=== PATIENT | female | born 2000 | race Native Hawaiian/Other Pacific Islander ===

== ENCOUNTER 2020-03-25 12:03 | Emergency (ER) | payer MEDICAID ==
[2020-03-25 12:52] VITALS: BP 114/79
--- NOTE | 2020-03-25 13:18 | Event Note ---
ED Screening Note Date of service: 03/25/20 Time: 13:16 ED Screening Note: Patient presents with complaints of left-sided chest pain and pain with inspiration x last night She denies any recent long travel or leg pain/swelling Patient states she did have a sore throat 2 weeks ago that lasted for 1 to 2 weeks, denies being treated with antibiotics This initial assessment/diagnostic orders/clinical plan/treatment(s) is/are subject to change based on patients health status, clinical progression and re- assessment by fellow clinical providers in the ED. Further treatment and workup at subsequent clinical providers discretion. Patient/guardian urged not to elope from the ED as their condition may be serious if not clinically assessed and managed. Initial orders include: Chest x-ray Labs EKG
[2020-03-25 14:37] LABS: Basophils % (Auto) 0.5 % (0.0-1.8); Eosinophils % (Auto) 0.7 % (0.0-4.3); Hematocrit 38.6 % (30.3-42.9); Hemoglobin 12.7 gm/dl (10.1-14.3); Lymphocytes # (Auto) 1.1 K/mm3 (1.2-5.4); Lymphocytes % (Auto) 21.3 % (13.4-35.0); Mean Corpuscular HGB Conc 33 % (30-34); Mean Corpuscular Volume 87 fl (79-97); Monocytes # (Auto) 0.5 K/mm3 (0.0-0.8); Monocytes % (Auto) 8.7 % (0.0-7.3); Platelet Count 130 K/mm3 (140-440); Red Blood Count 4.46 M/mm3 (3.65-5.03); Red Cell Distribution Width 14.5 % (13.2-15.2)
[2020-03-25 15:01] LABS: Alanine Aminotransferase 11 units/L (7-56); Albumin 3.8 g/dL (3.9-5); BUN/Creatinine Ratio 11; Blood Urea Nitrogen 8 mg/dL (7-17); Calcium 8.9 mg/dL (8.4-10.2); Hemolysis Index 12
[2020-03-25 15:49] LABS: HCG Qualitative,Urine Negative (Negative)
--- NOTE | 2020-03-25 16:13 | XRay Report ---
CHEST 2 VIEWS INDICATION / CLINICAL INFORMATION: Chest pain. COMPARISON: None available. FINDINGS: SUPPORT DEVICES: None. HEART / MEDIASTINUM: The heart size and pulmonary vasculature are normal. The aorta is normal in [place]. LUNGS / PLEURA: There is minimal patchy parenchymal disease in the left lower lung laterally. There i s a trace amount of left pleural fluid. No pneumothorax. ADDITIONAL FINDINGS: No significant additional findings. IMPRESSION: Minimal left basilar pleuroparenchymal opacity laterally. The findings may be related to early pneumonia or a combination of subsegmental atelectasis and trace pleural effusion. Signer Name: John Plaza MD Signed: 03/25/2020 4:09 PM Workstation Name: [id number]
--- NOTE | 2020-03-25 19:04 | Emergency Department Report ---
ED General Adult HPI - General Chief complaint: Chest Pain Stated complaint: CHEST & BACK PAIN Time Seen by Provider: 03/25/20 13:13 Source: patient Mode of arrival: Ambulatory Limitations: No Limitations - History of Present Illness Initial comments: 19-year-old female without significant past medical presents with complaints of left-sided chest pain and pain with inspiration x last night. She denies any recent long travel, hormone use, leg pain/swelling, hemoptysis, or history of cancer. Patient states she did have a sore throat 2 weeks ago that lasted for 1 to 2 weeks, denies being treated with antibiotics. Patient does admit to history of smoking cigarettes and denies any known sick contacts. She rates her current chest pain as a 5/10 in severity. Patient also admits to a mild to moderate cough that is nonproductive. She denies any abdominal pain, nausea/vomiting/diarrhea, loss of smell taste/smell, or fever. -: Sudden Radiation: non-radiation Severity scale (0 -10): 5 Quality: sharp Consistency: constant Improves with: rest Worsens with: other (Inspiratory) Treatments Prior to Arrival: none - Related Data Home Medications Medication Instructions Recorded Confirmed Last Taken prednisoLONE [Millipred] 5 mg PO QDAY 07/09/19 07/09/19 07/09/19 09:00 Previous Rx's Medication Instructions Recorded Last Taken Type Docusate Sodium [Colace] 100 mg PO BID PRN #60 capsule 07/12/19 Unknown Rx Ferrous Sulfate [Feosol 325 MG tab] 325 mg PO BID #60 tablet 07/12/19 Unknown Rx HYDROcodone/APAP 5-325 [[place] 1 each PO Q6HR PRN #20 tablet 07/12/19 Unknown Rx 5/325] Ibuprofen [Motrin] 600 mg PO Q6H PRN #30 tablet 07/12/19 Unknown Rx Doxycycline Monohydrate 100 mg PO BID 10 Days #20 capsule 03/25/20 Unknown Rx Ibuprofen [Motrin 800 MG tab] 800 mg PO Q8HR PRN #21 tablet 03/25/20 Unknown Rx Allergies Allergy/AdvReac Type Severity Reaction Status Date / Time No Known Allergies Allergy Verified 07/09/19 21:28 ED Review of Systems ROS: Stated complaint: CHEST & BACK PAIN Other details as noted in HPI Constitutional: denies: chills, diaphoresis, fever, malaise, weakness ENT: denies: throat pain Respiratory: cough. denies: shortness of breath Cardiovascular: chest pain. denies: palpitations, edema, syncope Gastrointestinal: denies: abdominal pain, nausea, vomiting, diarrhea Genitourinary: denies: urgency Musculoskeletal: denies: back pain Skin: denies: rash, lesions Neurological: denies: headache, weakness Psychiatric: denies: anxiety ED Past Medical Hx - Past Medical History Previous Medical History?: Yes Hx Hypertension: No Hx Congestive Heart Failure: No Hx Diabetes: No Hx Deep Vein Thrombosis: No Hx Renal Disease: No Hx Sickle Cell Disease: No Hx Seizures: No Hx Asthma: Yes Hx COPD: No Hx HIV: No - Surgical History Past Surgical History?: No - Social History Smoking Status: Current Every Day Smoker Substance Use Type: Alcohol - Medications Home Medications: Home Medications Medication Instructions Recorded Confirmed Last Taken Type prednisoLONE [Millipred] 5 mg PO QDAY 07/09/19 07/09/19 07/09/19 09:00 History Docusate Sodium [Colace] 100 mg PO BID PRN #60 capsule 07/12/19 Unknown Rx Ferrous Sulfate [Feosol 325 MG tab] 325 mg PO BID #60 tablet 07/12/19 Unknown Rx HYDROcodone/APAP 5-325 [[place] 1 each PO Q6HR PRN #20 tablet 07/12/19 Unknown Rx 5/325] Ibuprofen [Motrin] 600 mg PO Q6H PRN #30 tablet 07/12/19 Unknown Rx Doxycycline Monohydrate 100 mg PO BID 10 Days #20 capsule 03/25/20 Unknown Rx Ibuprofen [Motrin 800 MG tab] 800 mg PO Q8HR PRN #21 tablet 03/25/20 Unknown Rx ED Physical Exam - General Limitations: No Limitations General appearance: alert, in no apparent distress - Head Head exam: Present: atraumatic, normocephalic - Eye Eye exam: Present: normal appearance - ENT ENT exam: Present: normal orophraynx, mucous membranes moist - Neck Neck exam: Present: normal inspection - Respiratory Respiratory exam: Present: normal lung sounds bilaterally. Absent: respiratory distress, chest wall tenderness - Cardiovascular Cardiovascular Exam: Present: regular rate, normal rhythm. Absent: systolic murmur, diastolic murmur, rubs, gallop - GI/Abdominal GI/Abdominal exam: Present: soft, normal bowel sounds. Absent: tenderness - Extremities Exam Extremities exam: Present: normal inspection. Absent: calf tenderness (No swelling noted bilaterally to lower extremity) - Back Exam Back exam: Present: normal inspection - Neurological Exam Neurological exam: Present: alert, oriented X3, normal gait - Psychiatric Psychiatric exam: Present: normal affect, normal mood - Skin Skin exam: Present: warm, dry, intact, normal color. Absent: rash, cyanosis, diaphoretic, petechiae, ecchymosis ED Course Vital Signs 03/25/20 12:50 Temperature 98.6 F Pulse Rate 87 Respiratory 18 Rate Blood Pressure 114/79 O2 Sat by Pulse 99 Oximetry ED Medical Decision Making - Lab Data Result diagrams: 03/25/20 14:19 03/25/20 14:19 Lab Results 03/25/20 03/25/20 03/25/20 Range/Units 14:19 14:19 Unknown WBC 5.3 (4.5-11.0) K/mm3 RBC 4.46 (3.65-5.03) M/mm3 Hgb 12.7 (10.1-14.3) gm/dl Hct 38.6 (30.3-42.9) % MCV 87 (79-97) fl MCH 29 (28-32) pg MCHC 33 (30-34) % RDW 14.5 (13.2-15.2) % Plt Count 130 L (140-440) K/mm3 Lymph % (Auto) 21.3 (13.4-35.0) % [place] % (Auto) 8.7 H (0.0-7.3) % Eos % (Auto) 0.7 (0.0-4.3) % Baso % (Auto) 0.5 (0.0-1.8) % Lymph # 1.1 L (1.2-5.4) K/mm3 [place] # 0.5 (0.0-0.8) K/mm3 Eos # 0.0 (0.0-0.4) K/mm3 Baso # 0.0 (0.0-0.1) K/mm3 Seg Neutrophils % 68.8 (40.0-70.0) % Seg Neutrophils # 3.7 (1.8-7.7) K/mm3 Sodium 139 (137-145) mmol/L Potassium 4.2 (3.6-5.0) mmol/L Chloride 104.1 (98-107) mmol/L Carbon Dioxide 23 (22-30) mmol/L Anion Gap 16 mmol/L BUN 8 (7-17) mg/dL Creatinine 0.7 (0.7-1.2) mg/dL Estimated GFR > 60 ml/min BUN/Creatinine Ratio 11 % Glucose 95 (65-100) mg/dL Calcium 8.9 (8.4-10.2) mg/dL Total Bilirubin 0.30 (0.1-1.2) mg/dL AST 20 (5-40) units/L ALT 11 (7-56) units/L Alkaline Phosphatase 60 (35-129) units/L Troponin T < 0.010 (0.00-0.029) ng/mL Total Protein 7.4 (6.3-8.2) g/dL Albumin 3.8 L (3.9-5) g/dL Albumin/Globulin Ratio 1.1 % Urine HCG, Qual Negative (Negative) - EKG Data EKG shows normal: sinus rhythm Rate: normal - EKG Data Interpretation: normal EKG - Radiology Data Radiology results: report reviewed CHEST 2 VIEWS INDICATION / CLINICAL INFORMATION: Chest pain. COMPARISON: None available. FINDINGS: SUPPORT DEVICES: None. HEART / MEDIASTINUM: The heart size and pulmonary vasculature are normal. The aorta is normal in caliber. LUNGS / PLEURA: There is minimal patchy parenchymal disease in the left lower lung laterally. There is a trace amount of left pleural fluid. No pneumothorax. ADDITIONAL FINDINGS: No significant additional findings. IMPRESSION: Minimal left basilar pleuroparenchymal opacity laterally. The findings may be related to early pneumonia or a combination of subsegmental atelectasis and trace pleural effusion. - Medical Decision Making Patient here with complaints of left-sided chest pain, cough, and pleurisy. PERC score = 0. No significant abnormalities noted on labs. White count is normal on CBC. Chest x-ray shows possible early onset pneumonia versus atelectasis and a minimal left pleural effusion. Vitals are normal. EKG is normal negative for any signs of pericarditis. Will treat for pneumonia with doxycycline. Patient advised to discontinue smoking. Patient is well-appearing and stable for discharge home. Recommend follow-up with primary care provider in 3 to 5 days. Strict return precautions were discussed in detail with patient who verbalizes understanding. Discussed patient with Dr. Berrios who agrees with plan of care. Critical care attestation.: If time is entered above; I have spent that time in minutes in the direct care of this critically ill patient, excluding procedure time. ED Disposition Clinical Impression: Pneumonia involving left lung Qualifiers: Pneumonia type: due to unspecified organism Lung location: lower lobe of lung Qualified Code(s): J18.9 - Pneumonia, unspecified organism Disposition: - TO HOME OR SELFCARE Is pt being admited?: No Condition: Stable Instructions: Bacterial Pneumonia (ED) Prescriptions: Doxycycline Monohydrate 100 mg PO BID 10 Days #20 capsule Ibuprofen [Motrin 800 MG tab] 800 mg PO Q8HR PRN #21 tablet PRN Reason: pain Referrals: [facility] [Provider Group] - 3-5 Days Forms: Work/School Release Form(ED) ED Chest pain MDM - Core Measures AMI Core Measures Followed: Yes Cap Core Meausures Followed: Yes - Wells Criteria Clinical Symptoms of DVT: (0) No No Alternative Diagnosis: (0) No Immobilization of Surgery in Previous 4 Weeks: (0) No Previous DVT/PE: (0) No Hemoptysis: (0) No Malignancy: (0) No - PERC Rule Heart Rate < 100: (0) No O2 Sat on Room Air > .94%: (0) No No Prior History pf DVT/PE: (0) No No Recent Trauma or Surgery: (0) No Hemoptysis: (0) No No Exogenous Estrogen: (0) No No Clinical Signs Suggesting DVT: (0) No - VALDO Score Age > 65: (0) No 3 or more CAD Risk Factors: (0) No Known CAD with more than 50% Stenosis: (0) No Aspirin use within the Past 7 Days: (0) No Elevated Cardiac Markers: (0) No ST Deviation Greater than 0.5mm: (0) No
== END 2020-03-25 21:01 | disposition home or self-care (01) ==
LOC: ED 12:03
DX: J18.1 Lobar pneumonia, unspecified organism (principal); F17.200 Nicotine dependence, unspecified, uncomplicated; Z79.1 Long term (current) use of non-steroidal anti-inflammatories (NSAID); Z79.899 Other long term (current) drug therapy
CPT/HCPCS: 36415; 71046; 80053; 81025; 84484; 85025; 85652; 93005

== ENCOUNTER 2021-02-03 11:00 | Emergency (ER) | payer MEDICAID ==
[2021-02-03 12:32] LABS: HCG Qualitative,Urine Positive (Negative)
[2021-02-03 12:44] LABS: Bilirubin,Urine NEG (Negative); Blood,Urine NEG (Negative); Color,Urine Amber (Yellow); Mucus,Urine 3+ /HPF
[2021-02-03 12:56] VITALS: BP 118/74
[2021-02-03 13:22] LABS: Basophils % (Auto) 0.2 % (0.0-1.8); Eosinophils % (Auto) 0.4 % (0.0-4.3); Hematocrit 35.6 % (30.3-42.9); Hemoglobin 12.6 gm/dl (10.1-14.3); Lymphocytes # (Auto) 1.1 K/mm3 (1.2-5.4); Lymphocytes % (Auto) 18.7 % (13.4-35.0); Mean Corpuscular HGB Conc 35 % (30-34); Mean Corpuscular Volume 89 fl (79-97); Monocytes # (Auto) 0.6 K/mm3 (0.0-0.8); Monocytes % (Auto) 10.1 % (0.0-7.3); Platelet Count 324 K/mm3 (140-440); Red Blood Count 3.99 M/mm3 (3.65-5.03); Red Cell Distribution Width 13.3 % (13.2-15.2)
[2021-02-03 13:36] LABS: Alanine Aminotransferase 8 units/L (7-56); Albumin 4.3 g/dL (3.9-5); Blood Urea Nitrogen 14 mg/dL (7-17); Calcium 9.4 mg/dL (8.4-10.2); Hemolysis Index 12
[2021-02-03 13:42] LABS: BUN/Creatinine Ratio 23
--- NOTE | 2021-02-03 15:09 | Emergency Department Report ---
ED HPI - General Chief complaint: Upper Respiratory Infection Stated complaint: POSSIBLE 3 DAYS LATE Time Seen by Provider: 02/03/21 12:58 Source: patient Mode of arrival: Ambulatory Limitations: No Limitations - History of Present Illness Initial comments: 20-year-old female patient presents with complaints of lower abdominal cramping x3 days and nausea and vomiting starting yesterday. She also complains of intermittent swelling in her left hand for the past few weeks, but denies any current. Last menstrual cycle was approximately 12/13/2020. She reports a positive test at home 2 weeks ago. She is A0. No vaginal bleeding, vaginal discharge/dyspareunia, dysuria/hematuria/urinary frequency, hematemesis/coffee-ground emesis, chest pain, shortness of breath, or fever/chills/sweats per patient. She also denies any past medical history. Severity scale (0 -10): 2 - Related Data Home Medications Medication Instructions Recorded Confirmed Last Taken prednisoLONE [Millipred] 5 mg PO QDAY 07/09/19 07/09/19 07/09/19 09:00 Previous Rx's Medication Instructions Recorded Last Taken Type Docusate Sodium [Colace] 100 mg PO BID PRN #60 capsule 07/12/19 Unknown Rx Ferrous Sulfate [Feosol 325 MG tab] 325 mg PO BID #60 tablet 07/12/19 Unknown Rx HYDROcodone/APAP 5-325 [[place] 1 each PO Q6HR PRN #20 tablet 07/12/19 Unknown Rx 5/325] Ibuprofen [Motrin] 600 mg PO Q6H PRN #30 tablet 07/12/19 Unknown Rx Doxycycline Monohydrate 100 mg PO BID 10 Days #20 capsule 03/25/20 Unknown Rx Ibuprofen [Motrin 800 MG tab] 800 mg PO Q8HR PRN #21 tablet 03/25/20 Unknown Rx Azithromycin [Zithromax Z-MINNIE] 250 mg PO DAILY #6 tab 05/26/20 Unknown Rx Amoxicillin/Potassium Clav 1 each PO BID 5 Days #10 tablet 02/03/21 Unknown Rx [Augmentin 875-125 Tablet] Promethazine HCl [Promethazine TAB] 12.5 - 25 mg PO [id number] PRN #30 tab 02/03/21 Unknown Rx Allergies Allergy/AdvReac Type Severity Reaction Status Date / Time No Known Allergies Allergy Verified 02/03/21 12:56 ED Review of Systems ROS: Stated complaint: POSSIBLE 3 DAYS LATE Other details as noted in HPI Constitutional: denies: chills, fever ENT: denies: throat pain Respiratory: denies: cough, shortness of breath Cardiovascular: denies: chest pain Gastrointestinal: nausea, vomiting (For episode). denies: abdominal pain, di arrhea, constipation, hematemesis, melena, hematochezia Genitourinary: denies: urgency, dysuria, frequency, hematuria, discharge, abnormal menses Musculoskeletal: denies: back pain Skin: denies: change in color Neurological: denies: headache Hematological/Lymphatic: denies: easy bleeding ED Past Medical Hx - Past Medical History Hx Hypertension: No Hx Congestive Heart Failure: No Hx Diabetes: No Hx Deep Vein Thrombosis: No Hx Renal Disease: No Hx Sickle Cell Disease: No Hx Seizures: No Hx Asthma: Yes Hx COPD: No Hx HIV: No - Social History Smoking Status: Current Every Day Smoker - Medications Home Medications: Home Medications Medication Instructions Recorded Confirmed Last Taken Type prednisoLONE [Millipred] 5 mg PO QDAY 07/09/19 07/09/19 07/09/19 09:00 History Docusate Sodium [Colace] 100 mg PO BID PRN #60 capsule 07/12/19 Unknown Rx Ferrous Sulfate [Feosol 325 MG tab] 325 mg PO BID #60 tablet 07/12/19 Unknown Rx HYDROcodone/APAP 5-325 [[place] 1 each PO Q6HR PRN #20 tablet 07/12/19 Unknown Rx 5/325] Ibuprofen [Motrin] 600 mg PO Q6H PRN #30 tablet 07/12/19 Unknown Rx Doxycycline Monohydrate 100 mg PO BID 10 Days #20 capsule 03/25/20 Unknown Rx Ibuprofen [Motrin 800 MG tab] 800 mg PO Q8HR PRN #21 tablet 03/25/20 Unknown Rx Azithromycin [Zithromax Z-MINNIE] 250 mg PO DAILY #6 tab 05/26/20 Unknown Rx Amoxicillin/Potassium Clav 1 each PO BID 5 Days #10 tablet 02/03/21 Unknown Rx [Augmentin 875-125 Tablet] Promethazine HCl [Promethazine TAB] 12.5 - 25 mg PO [id number] PRN #30 tab 02/03/21 Unknown Rx ED Physical Exam - General Limitations: No Limitations General appearance: alert, in no apparent distress - Head Head exam: Present: atraumatic, normocephalic - Eye Eye exam: Present: normal appearance. Absent: scleral icterus - Neck Neck exam: Present: normal inspection - Respiratory Respiratory exam: Present: normal lung sounds bilaterally. Absent: respiratory distress - Cardiovascular Cardiovascular Exam: Present: regular rate, normal rhythm - GI/Abdominal GI/Abdominal exam: Present: soft, normal bowel sounds. Absent: distended, tenderness, guarding, rebound, rigid - Extremities Exam Extremities exam: Present: full ROM - Back Exam Back exam: Present: full ROM. Absent: CVA tenderness (R), CVA tenderness (L) - Neurological Exam Neurological exam: Present: alert, oriented X3, normal gait - Psychiatric Psychiatric exam: Present: normal affect, normal mood - Skin Skin exam: Present: warm, dry, intact, normal color. Absent: rash ED Course Vital Signs 02/03/21 12:55 Temperature 97.8 F Pulse Rate 73 Respiratory 18 Rate Blood Pressure 118/74 [Left] O2 Sat by Pulse 98 Oximetry ED Medical Decision Making - Lab Data Result diagrams: 02/03/21 13:02 02/03/21 13:02 Lab Results 02/03/21 02/03/21 02/03/21 Range/Units 13:02 13:02 13:02 WBC 6.0 (4.5-11.0) K/mm3 RBC 3.99 (3.65-5.03) M/mm3 Hgb 12.6 (10.1-14.3) gm/dl Hct 35.6 (30.3-42.9) % MCV 89 (79-97) fl MCH 32 (28-32) pg MCHC 35 H (30-34) % RDW 13.3 (13.2-15.2) % Plt Count 324 (140-440) K/mm3 Lymph % (Auto) 18.7 (13.4-35.0) % [place] % (Auto) 10.1 H (0.0-7.3) % Eos % (Auto) 0.4 (0.0-4.3) % Baso % (Auto) 0.2 (0.0-1.8) % Lymph # (Auto) 1.1 L (1.2-5.4) K/mm3 [place] # (Auto) 0.6 (0.0-0.8) K/mm3 Eos # (Auto) 0.0 (0.0-0.4) K/mm3 Baso # (Auto) 0.0 (0.0-0.1) K/mm3 Seg Neutrophils % 70.6 H (40.0-70.0) % Seg Neutrophils # 4.2 (1.8-7.7) K/mm3 Sodium 135 L (137-145) mmol/L Potassium 4.5 (3.6-5.0) mmol/L Chloride 100.2 (98-107) mmol/L Carbon Dioxide 22 (22-30) mmol/L Anion Gap 17 mmol/L BUN 14 (7-17) mg/dL Creatinine 0.6 (0.6-1.2) mg/dL Estimated GFR > 60 ml/min BUN/Creatinine Ratio 23 % Glucose 81 (65-100) mg/dL Calcium 9.4 (8.4-10.2) mg/dL Total Bilirubin 0.30 (0.1-1.2) mg/dL AST 20 (5-40) units/L ALT 8 (7-56) units/L Alkaline Phosphatase 59 (35-129) units/L Total Protein 8.3 H (6.3-8.2) g/dL Albumin 4.3 (3.9-5) g/dL Albumin/Globulin Ratio 1.1 % HCG, Quant 53688 H (0-4) mIU/mL Urine Color (Yellow) Urine Turbidity (Clear) Urine pH (5.0-7.0) Ur Specific [place] (1.003-1.030) Urine Protein (Negative) mg/dL Urine Glucose (UA) (Negative) mg/dL Urine Ketones (Negative) mg/dL Urine Blood (Negative) Urine Nitrite (Negative) Ur Reducing Substances Urine Bilirubin (Negative) Urine Ictotest Urine Urobilinogen (<2.0) mg/dL Ur Leukocyte Esterase (Negative) Urine WBC (Auto) (0.0-6.0) /HPF Urine RBC (Auto) (0.0-6.0) /HPF U Epithel Cells (Auto) (0-13.0) /HPF Urine Mucus /HPF Urine HCG, Qual (Negative) 02/03/21 Range/Units Unknown WBC (4.5-11.0) K/mm3 RBC (3.65-5.03) M/mm3 Hgb (10.1-14.3) gm/dl Hct (30.3-42.9) % MCV (79-97) fl MCH (28-32) pg MCHC (30-34) % RDW (13.2-15.2) % Plt Count (140-440) K/mm3 Lymph % (Auto) (13.4-35.0) % [place] % (Auto) (0.0-7.3) % Eos % (Auto) (0.0-4.3) % Baso % (Auto) (0.0-1.8) % Lymph # (Auto) (1.2-5.4) K/mm3 [place] # (Auto) (0.0-0.8) K/mm3 Eos # (Auto) (0.0-0.4) K/mm3 Baso # (Auto) (0.0-0.1) K/mm3 Seg Neutrophils % (40.0-70.0) % Seg Neutrophils # (1.8-7.7) K/mm3 Sodium (137-145) mmol/L Potassium (3.6-5.0) mmol/L Chloride (98-107) mmol/L Carbon Dioxide (22-30) mmol/L Anion Gap mmol/L BUN (7-17) mg/dL Creatinine (0.6-1.2) mg/dL Estimated GFR ml/min BUN/Creatinine Ratio % Glucose (65-100) mg/dL Calcium (8.4-10.2) mg/dL Total Bilirubin (0.1-1.2) mg/dL AST (5-40) units/L ALT (7-56) units/L Alkaline Phosphatase (35-129) units/L Total Protein (6.3-8.2) g/dL Albumin (3.9-5) g/dL Albumin/Globulin Ratio % HCG, Quant (0-4) mIU/mL Urine Color [place] (Yellow) Urine Turbidity Slightly-cloudy (Clear) Urine pH 5.0 (5.0-7.0) Ur Specific [place] 1.032 H (1.003-1.030) Urine Protein 100 mg/dl (Negative) mg/dL Urine Glucose (UA) Neg (Negative) mg/dL Urine Ketones 80 (Negative) mg/dL Urine Blood Neg (Negative) Urine Nitrite Neg (Negative) Ur Reducing Substances Not Reportable Urine Bilirubin Neg (Negative) Urine Ictotest Not Reportable Urine Urobilinogen 2.0 (<2.0) mg/dL Ur Leukocyte Esterase Lg (Negative) Urine WBC (Auto) 10.0 H (0.0-6.0) /HPF Urine RBC (Auto) 5.0 (0.0-6.0) /HPF U Epithel Cells (Auto) 4.0 (0-13.0) /HPF Urine Mucus 3+ /HPF Urine HCG, Qual Positive A (Negative) - Radiology Data Radiology results: report reviewed TRANSVAGINAL OB PELVIC ULTRASOUND INDICATION / CLINICAL INFORMATION: Pelvic pain. COMPARISON: None available. FINDINGS: The uterus measures 9.5 x 5.1 x 6.3 cm. There is an intrauterine gestational sac. [There is a pole measuring 6 weeks 2 days. There is cardiac activity with a heart rate of 170 bpm. A yolk sac is present. There is no evidence of implantation hemorrhage. There is a small nabothian cyst in the cervix measuring 5 mm. There is a 1.5 cm corpus luteal cyst in the right ovary. The left ovary is normal. There is normal blood flow to both ovaries on Doppler exam. I see no evidence of an extraovarian mass or free fluid.] IMPRESSION: 1. Single viable 6 week 2 day intrauterine . 2. Small corpus luteal cyst in the right ovary. - Medical Decision Making 20-year-old female patient presents with complaints of lower abdominal cramping x3 days and nausea and vomiting starting yesterday. She also complains of intermittent swelling in her left hand for the past few weeks, but denies any current. Last menstrual cycle was approximately 12/13/2020. She reports a positive test at home 2 weeks ago. She is A0. No vaginal bleeding, vaginal discharge/dyspareunia, dysuria/hematuria/urinary frequency, hematemesis/coffee-ground emesis, chest pain, shortness of breath, or fever/chills/sweats per patient. She also denies any past medical history. Ultrasound shows viable 6-week 2-day IUP. CBC and CMP are without significant abnormalities. UA shows 10 WBCs. Will treat for UTI with Augmentin. Patient to follow-up with her [facility] within 1 week. Referral provided. Her vitals are normal, she is well-appearing, she is stable for discharge home. Strict return precautions were discussed in detail with patient who verbalizes understanding. Critical care attestation.: If time is entered above; I have spent that time in minutes in the direct care of this critically ill patient, excluding procedure time. ED Disposition Clinical Impression: UTI in , 6 weeks gestation of , Joint pain Disposition: TO HOME OR SELFCARE Is pt being admited?: No Condition: Stable Instructions: and Urinary Tract Infection, Joint Pain, First Trimester of Prescriptions: Promethazine HCl [Promethazine TAB] 12.5 - 25 mg PO [id number] PRN #30 tab PRN Reason: Nausea Amoxicillin/Potassium Clav [Augmentin 875-125 Tablet] 1 each PO BID 5 Days #10 tablet Referrals: [facility] [Provider Group] - 3-5 Days
--- NOTE | 2021-02-03 15:13 | Ultrasound Report ---
TRANSVAGINAL OB PELVIC ULTRASOUND INDICATION / CLINICAL INFORMATION: Pelvic pain. COMPARISON: None available. FINDINGS: The uterus measures 9.5 x 5.1 x 6.3 cm. There is an intrauterine gestational sac. [There is a p ole measuring 6 weeks 2 days. There is cardiac activity with a heart rate of 170 bpm. A yolk sa c is present. There is no evidence of implantation hemorrhage. There is a small nabothian cyst in the cervix measuring 5 mm. There is a 1.5 cm corpus luteal cyst in the right ovary. The left ovary is normal. There is normal bl ood flow to both ovaries on Doppler exam. I see no evidence of an extraovarian mass or free fluid.] IMPRESSION: 1. Single viable 6 week 2 day intrauterine . 2. Small corpus luteal cyst in the right ovary. Signer Name: John Plaza MD Signed: 02/03/2021 3:08 PM Workstation Name: [id number]
== END 2021-02-03 16:20 | disposition home or self-care (01) ==
LOC: ED 11:00
DX: O23.41 Unspecified infection of urinary tract in pregnancy, first trimester (principal); O26.891 Other specified pregnancy related conditions, first trimester; M25.542 Pain in joints of left hand; J45.909 Unspecified asthma, uncomplicated; F17.200 Nicotine dependence, unspecified, uncomplicated; Z3A.01 Less than 8 weeks gestation of pregnancy; Z79.899 Other long term (current) drug therapy
CPT/HCPCS: 36415; 76801; 76817; 80053; 81001; 81025; 84702; 85025; 87086

== ENCOUNTER 2021-09-11 08:00 | Outpatient (CLI) | payer MEDICAID ==
[2021-09-11 10:00] LABS: Bacteria,Urine 1+ /HPF (Negative); Bilirubin,Urine NEG (Negative); Blood,Urine SM (Negative); Color,Urine Yellow (Yellow); Mucus,Urine FEW /HPF; Protein,Urine <15 mg/dL mg/dL (Negative); Urobilinogen,Urine < 2.0 mg/dL (<2.0)
[2021-09-11 10:06] LABS: Hematocrit 32.5 % (30.3-42.9); Mean Corpuscular HGB Conc 34 % (30-34); Mean Corpuscular Volume 93 fl (79-97); Platelet Count 338 K/mm3 (140-440); Red Cell Distribution Width 13.7 % (13.2-15.2)
[2021-09-11 10:19] LABS: Alanine Aminotransferase 9 units/L (7-56)
[2021-09-11 10:54] VITALS: BP 106/55
== END 2021-09-11 11:13 | disposition home or self-care (01) ==
LOC: TRG 08:00 → APU 08:02 → TRG 11:13
PROVIDERS: ATTEND Obstetrics & Gynecology
DX: O15.02 Eclampsia complicating pregnancy, second trimester (principal); O26.893 Other specified pregnancy related conditions, third trimester; R06.02 Shortness of breath; R51.9 Headache, unspecified; Z3A.20 20 weeks gestation of pregnancy
CPT/HCPCS: 36415; 59025; 81001; 82565; 83615; 84450; 84460; 84550; 85027